=== PATIENT | female | born 1975 | race Caucasian/White ===

== ENCOUNTER 2023-08-23 10:02 | Outpatient (OUT) | payer BC, SELFPAY ==
--- NOTE | 2023-08-23 | XR_ITS ---
The [address] [address] Patient Name: ANASTASIA ANGELO MRN: [id number] date: 1975 Sex: F Assigned Patient Location: [facility] Current Patient Location: Accession/Order Number: [id number] Exam Date: 08/23/2023 10:58 Report Date: 08/24/2023 08:03 At the request of: KALIN MEDINA Procedure: XR foot TOMI min 3V EXAMINATION: XR foot TOMI min 3V HISTORY: BILAT FOOT PAIN ; left midfoot plantar pain; no known injury COMPARISON: No relevant comparison available. FINDINGS: RIGHT FINDINGS: BONES: No significant arthropathy or acute abnormality. SOFT TISSUES: No visible soft tissue swelling. OTHER: Negative. LEFT FINDINGS: BONES: Calcaneal plantar spur. No fracture, dislocation, significant degenerative joint disease, or appreciable loss of plantar arch. SOFT TISSUES: No visible soft tissue swelling. OTHER: Negative. XR/XR foot TOMI min 3V IMPRESSION: RIGHT CONCLUSION: Normal examination. LEFT CONCLUSION: Normal other than small calcaneal plantar spur. Electronically authenticated by: NASIM SANFORD Date: 08/24/2023 08:03
== END 2023-08-23 10:03 | disposition home or self-care (01) ==
LOC: RAD 10:05
PROVIDERS: Family Provider Family Medicine; Visit Provider Physician Assistant
DX: M79.671 Pain in right foot (principal); M77.32 Calcaneal spur, left foot; M79.672 Pain in left foot
CPT/HCPCS: 73630